=== PATIENT | female | born 1950 | race American Indian/Alaskan Native ===

== ENCOUNTER 2017-05-28 10:31 | Outpatient (CLI) | payer MEDICARE ==
--- NOTE | 2017-05-29 15:30 | PET Report ---
PET/CT:05/28/17 10:31:00 CLINICAL: Colon cancer staging. RADIOPHARMACEUTICAL: 15.6mCi F18-FDG. COMPARISON: None. TECHNIQUE- Following intravenous injection of F-18 FDG and an approximately 60 minute uptake period, CT and PET images from the mid skull to the upper thighs were acquired with the patient in the fasted state. No contrast was administered. The CT protocol used for this PET CT study is designed for attenuation correction and anatomic localization of PET abnormalities. This sourcing specialist CT is not desired to produce and cannot replace, [id number] diagnostic CT scans with specific imaging protocols for different body parts and indications. Plasma glucose at the time of this test: 93g/dl. The standardized uptake values (SUV) are normalized to patient body weight and indicate the highest activity concentration (SUV max) in a given disease site. FINDINGS: Brain--Physiologic FDG uptake in the visualized regions of the brain. Neck--Physiologic FDG uptake . Chest--Physiologic FDG uptake in mediastinal blood pool and myocardium. Lungs--No abnormal uptake. However, several tiny none CT evident bilateral upper lobe and right lower lobe lung nodules. The largest measures 4.9 mm in the right upper lobe near the minor fissure. There are at least four right upper lobe nodules and at least one lingular nodule. At least 2 right lower lobe nodules. Pleura/pericardium--No abnormal uptake. No pleural effusion. Thoracic nodes--No abnormal uptake. Hepatobiliary--No abnormal uptake. Liver background SUV mean, as a reference for comparing FDG studies, is 3.7 . No liver mass. A benign right hepatic cyst at the dome measures 2.7 x 2.0 cm. Spleen--No abnormal uptake. Pancreas--No abnormal uptake. Adrenal Glands--No abnormal uptake. Kidneys/Ureters/Bladder--No abnormal uptake. Abdominopelvic Nodes--No abnormal uptake. Bowel/Peritoneum/Mesentery--An FDG avid right colon mass measures approximately 5.2 x 4.0 x 4.7 cm with SUV 10.5. The mass appears to be in the cecum which is positioned more cephalad than usual. The terminal ileum and appendix are not well delineated and adjacent small bowel loops are thickened with increased FDG uptake. Several non-FDG avid right mesenteric lymph nodes. The largest measures 1.2 x 0.9 cm. No ascites. Pelvic organs--No abnormal uptake. Status post hysterectomy. Bones/Soft Tissues--No abnormal uptake. Other findings: Bilateral ovarian vein phleboliths. IMPRESSION- 1. A 5 cm right colon cancer. 2. Multiple bilateral subcentimeter non-FDG avid lung nodules suspicious for metastases. 3. Several right lower quadrant mesenteric lymph nodes suspicious for metastasis. 4. A 2.7 cm benign right hepatic cyst and no evidence of hepatic metastasis.
== END 2017-05-28 10:32 | disposition home or self-care (01) ==
LOC: PET 10:31
DX: C18.0 Malignant neoplasm of cecum (principal); R91.8 Other nonspecific abnormal finding of lung field; K76.89 Other specified diseases of liver; I87.8 Other specified disorders of veins; Z90.710 Acquired absence of both cervix and uterus
CPT/HCPCS: 78815; 82962; A9552

== ENCOUNTER 2017-06-08 06:52 | Day surgery (SDC) | payer MEDICARE ==
[2017-06-08 08:04] VITALS: BP 141/84
[2017-06-08 08:25] LABS: Hematocrit 30.6 % (30.3-42.9); Hemoglobin 9.8 gm/dl (10.1-14.3); Mean Corpuscular HGB Conc 32 % (30-34); Mean Corpuscular Volume 79 fl (79-97); Platelet Count 399 K/mm3 (140-440); Red Blood Count 3.88 M/mm3 (3.65-5.03); White Blood Count 7.3 K/mm3 (4.5-11.0)
[2017-06-08 08:26] LABS: Mean Corpuscular Hemoglobin 25 pg (28-32); Red Cell Distribution Width 28.7 % (13.2-15.2)
[2017-06-08 08:30] LABS: INR 0.92 (0.87-1.13)
[2017-06-08 08:31] LABS: Partial Thromboplastin Time 33.3 Sec. (24.2-36.6)
[2017-06-08 10:04] LABS: Anisocytosis 3+; Basophils % (Manual) 0 % (0.0-1.8); Blastocytes % (Manual) 0 %; Eosinophils % (Manual) 0 % (0.0-4.3)
[2017-06-08 10:05] LABS: Hypochromasia 1+; Poikilocytosis 1+
[2017-06-08 10:06] LABS: Diff Status Complete
== END 2017-06-08 08:47 | disposition home or self-care (01) ==
LOC: CATHLABREC 06:52 → EDSTATUS 07:30 → CATHLABREC 08:47
DX: C18.9 Malignant neoplasm of colon, unspecified (principal); K76.89 Other specified diseases of liver; Z53.8 Procedure and treatment not carried out for other reasons
CPT/HCPCS: 36415; 85007; 85025; 85610; 85730